=== PATIENT | female | born 1940 | race Caucasian/White ===

== ENCOUNTER 2019-06-27 15:19 | Inpatient (IN) | payer OTHER ==
[~2019-06-27] VITALS: Ht 167.6 cm; Wt 90.7 kg
[2019-06-27 15:26] VITALS: BP 141/73
[2019-06-27] MEDS ORDERED: VITAMIN D32000 UNI2 PO (15:31)
[2019-06-27] MEDS ORDERED: BUPROPION XL300 MG PO (15:31)
[2019-06-27] MEDS ORDERED: ASPIRIN EC325 M1 PO (15:31)
[2019-06-27] MEDS ORDERED: LEVO-T50 MCG PO (15:32)
[2019-06-27] MEDS ORDERED: OMEPRAZOLE 20 M20 M1 PO (15:32)
[2019-06-27] MEDS ORDERED: ZOFRAN ODT4 MG PO (15:32)
[2019-06-27] MEDS ORDERED: TRAMADOL 50 MG50 MG PO (15:32)
[2019-06-27] MEDS ORDERED: LOPRESSOR100 M1 PO (15:33)
[2019-06-27] MEDS ORDERED: COZAAR 25 MG TA25 M1 PO (15:33)
[2019-06-27 15:56] LABS: ABSOLUTE LYMPHOCYTES 1.6 thou/uL (0.8-5.3); ABSOLUTE MONOCYTES 0.5 thou/uL (0.0-1.2); ABSOLUTE NEUTROPHILS 6.7 thou/uL (1.6-8.1); BASOPHILS 0.5 %; EOSINOPHILS 0.3 %; HEMATOCRIT 48.2 % (37.0-47.0); HEMOGLOBIN 16.7 gm/dL (12.0-15.0); LYMPHOCYTES 17.9 %; MCH 29.2 pg (26.0-34.0); MCHC 34.7 g/dL (28.0-37.0); MCV 84.2 fL (80.0-100.0); MPV 9.6 fl. (7.2-11.1); NUCLEATED RBCS 0 /100WBC; PLATELET COUNT* 209 thou/uL (150-400); POLYS 75.3 %; RBC 5.72 mil/uL (4.20-5.00); RDW-CV 14.6 % (10.5-14.5); WBC 8.9 thou/uL (4.0-11.0)
[2019-06-27 16:04] LABS: URINE BLOOD TRACE (Negative); URINE CLARITY CLOUDY; URINE COLOR YELLOW; URINE GLUCOSE-RANDOM NEGATIVE (Negative); URINE KETONES TRACE (Negative); URINE NITRITE-REFLEX NEGATIVE (Negative); URINE PROTEIN NEGATIVE (Negative); URINE SPECIFIC GRAVITY 1.015 (1.005-1.030)
[2019-06-27 16:06] LABS: ICTOTEST (BILI CONFIRMATORY) Negative (Negative); URINE BILIRUBIN 1+ (Negative); URINE LEUKOCYTES-REFLEX 3+ (Negative)
[2019-06-27 16:09] LABS: CALCIUM 9.9 mg/dL (8.5-10.1); CREATININE 0.9 mg/dL (0.6-1.3); INR 1.1; POTASSIUM 3.4 mmol/L (3.5-5.1); PROTIME 11.6 Seconds (9.20-11.50)
[2019-06-27 16:14] LABS: SQUAMOUS >10 Many /LPF (0-3); URINE WBC-REFLEX >25 Many /HPF (0-5)
[2019-06-27 16:14] LABS: ALBUMIN 4.2 g/dL (3.4-5.0); TOTAL BILIRUBIN 0.9 mg/dL (<0.1-1.0); TOTAL PROTEIN 8.2 g/dL (6.4-8.2)
[2019-06-27 16:15] LABS: BACTERIA-REFLEX >30 Many /HPF (None Seen)
[2019-06-27 16:16] LABS: URINE RBC 0-2 Rare /HPF (0-2)
[2019-06-27 16:16] LABS: INFLUENZA A ANTIGEN Negative (Negative); INFLUENZA B ANTIGEN Negative (Negative)
[2019-06-27 16:17] LABS: CASTS None Seen /LPF (None Seen); CRYSTALS None Seen /LPF (None Seen); MUCUS None Seen strn/LPF (None Seen)
[2019-06-27 20:05] VITALS: BP 115/61
[2019-06-27 21:00] VITALS: BP 149/60
[2019-06-28 05:25] LABS: ABSOLUTE EOSINOPHILS 0.1 thou/uL (0.0-0.7); ABSOLUTE LYMPHOCYTES 1.8 thou/uL (0.8-5.3); ABSOLUTE MONOCYTES 0.5 thou/uL (0.0-1.2); ABSOLUTE NEUTROPHILS 3.7 thou/uL (1.6-8.1); BASOPHILS 0.4 %; EOSINOPHILS 1.4 %; HEMATOCRIT 40.4 % (37.0-47.0); LYMPHOCYTES 29.2 %; MCH 28.8 pg (26.0-34.0); MCHC 33.8 g/dL (28.0-37.0); MCV 85.1 fL (80.0-100.0); MONOCYTES 8.7 %; MPV 9.8 fl. (7.2-11.1); NUCLEATED RBCS 0 /100WBC; PLATELET COUNT* 168 thou/uL (150-400); POLYS 60.3 %; RBC 4.74 mil/uL (4.20-5.00); RDW-CV 14.9 % (10.5-14.5); WBC 6.2 thou/uL (4.0-11.0)
[2019-06-28 05:33] LABS: HEMOGLOBIN 13.7 gm/dL (12.0-15.0)
[2019-06-28 05:51] LABS: CALCIUM 8.4 mg/dL (8.5-10.1); CREATININE 0.8 mg/dL (0.6-1.3); TOTAL BILIRUBIN 0.7 mg/dL (<0.1-1.0); TOTAL PROTEIN 5.9 g/dL (6.4-8.2)
[2019-06-28 06:09] LABS: POTASSIUM 2.6 mmol/L (3.5-5.1)
[2019-06-28 08:57] VITALS: BP 145/76
--- NOTE | 2019-06-28 10:10 | EKG ---
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 : 1940 Requested By: Jose Gudino Order Number: [id number] MD: Roberto Lomeli Measurements Intervals [place] Rate: 87 P: 26 MA: 138 QRS: -43 QRSD: 96 T: 112 QT: 382 QTc: 460 Interpretive Statements Sinus rhythm Abnormal R-wave progression, late transition LVH with secondary repolarization abnormality left axis deviation Baseline wander in lead(s) V1,V2 No previous ECG available for comparison Electronically Signed On 06-28-2019 10:09:35 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
[2019-06-28 10:46] LABS: MAGNESIUM 1.5 mg/dL (1.8-2.4); PHOSPHORUS* 3.2 mg/dL (2.5-4.9)
[2019-06-28 16:00] VITALS: BP 121/48
[2019-06-28 19:45] VITALS: BP 132/60
[2019-06-29 08:00] VITALS: BP 130/49
[2019-06-29 12:12] LABS: MAGNESIUM 1.6 mg/dL (1.8-2.4); POTASSIUM 3.4 mmol/L (3.5-5.1)
[2019-06-29 16:51] VITALS: BP 130/37
[2019-06-29 20:00] VITALS: BP 130/48
[2019-06-30 04:47] LABS: CALCIUM 8.1 mg/dL (8.5-10.1); CREATININE 0.8 mg/dL (0.6-1.3); POTASSIUM 3.2 mmol/L (3.5-5.1)
[2019-06-30 08:10] VITALS: BP 153/77
[2019-06-30 15:45] VITALS: BP 121/50
[2019-06-30 20:00] VITALS: BP 137/54
[2019-07-01 07:40] VITALS: BP 96/72
[2019-07-01 16:00] VITALS: BP 127/53; BP 96/63
[2019-07-01 20:00] VITALS: BP 126/69
[2019-07-02 05:10] LABS: ALBUMIN 2.8 g/dL (3.4-5.0); CALCIUM 8.4 mg/dL (8.5-10.1); CREATININE 0.7 mg/dL (0.6-1.3); MAGNESIUM 1.3 mg/dL (1.8-2.4); PHOSPHORUS* 3.4 mg/dL (2.5-4.9); POTASSIUM 3.5 mmol/L (3.5-5.1)
[2019-07-02 07:45] VITALS: BP 136/64
[2019-07-02 16:49] VITALS: BP 146/53
[2019-07-02 20:00] VITALS: BP 142/63
[2019-07-03 04:40] LABS: CALCIUM 8.6 mg/dL (8.5-10.1); CREATININE 0.8 mg/dL (0.6-1.3); MAGNESIUM 1.5 mg/dL (1.8-2.4)
[2019-07-03 16:00] VITALS: BP 108/44
[2019-07-03 20:00] VITALS: BP 116/68
[2019-07-04 08:00] VITALS: BP 149/60
[2019-07-04 10:22] VITALS: BP 149/60
[2019-07-04 10:25] VITALS: BP 149/60
[2019-07-04] MEDS ORDERED: MACROBID 100 M100 MG PO (13:06)
[2019-07-04 15:17] VITALS: BP 149/60
[2019-07-04 18:05] VITALS: BP 149/60
== END 2019-07-04 18:00 | disposition home health service (06) | DRG 391 ==
LOC: M.ERS 15:19 → M.3W 18:46 → M.TBA-ER 18:46 → M.3W 20:31
PROVIDERS: Family Medicine; ADMIT Family Medicine
DX: A08.4 Viral intestinal infection, unspecified (principal); E43 Unspecified severe protein-calorie malnutrition; N39.0 Urinary tract infection, site not specified; S42.201A Unspecified fracture of upper end of right humerus, initial encounter for closed fracture; I10 Essential (primary) hypertension; K21.9 Gastro-esophageal reflux disease without esophagitis; E86.0 Dehydration; R31.9 Hematuria, unspecified; B37.2 Candidiasis of skin and nail; E87.6 Hypokalemia; E83.42 Hypomagnesemia; Z88.0 Allergy status to penicillin; Z88.2 Allergy status to sulfonamides; Z88.6 Allergy status to analgesic agent; Z91.041 Radiographic dye allergy status; Z90.49 Acquired absence of other specified parts of digestive tract; Z90.710 Acquired absence of both cervix and uterus; Z82.49 Family history of ischemic heart disease and other diseases of the circulatory system; Z68.32 Body mass index [BMI] 32.0-32.9, adult; W18.39XA Other fall on same level, initial encounter; Y93.89 Activity, other specified; Y92.89 Other specified places as the place of occurrence of the external cause; Y99.8 Other external cause status